=== PATIENT | male | born 1995 | race African-American/Black ===

== ENCOUNTER 2016-08-01 18:56 | Emergency (ER) | payer OTHER ==
[~2016-08-01] VITALS: Ht 177.8 cm; Wt 88.0 kg
[2016-08-01 19:07] VITALS: BP 117/75
[2016-08-01] MEDS ORDERED: PRED20TA PO (19:14)
[2016-08-01] MEDS ORDERED: AMOX875T PO (19:14)
[2016-08-01] MEDS ORDERED: VENTOLIN HFA18 GM INH (19:14)
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
== END 2016-08-01 19:25 | disposition home or self-care (01) ==
LOC: ER 18:56
DX: J20.9 Acute bronchitis, unspecified (principal); F12.10 Cannabis abuse, uncomplicated
CPT/HCPCS: 99283

== ENCOUNTER 2017-02-12 21:50 | Emergency (ER) | payer SELFPAY ==
[~2017-02-12] VITALS: Ht 177.8 cm; Wt 86.6 kg
[~2017-02-12 21:50] MED LIST: AMOX875T PO; PRED20TA PO; VENTOLIN HFA18 GM INH
[2017-02-12 22:31] LABS: BASO # 0.1 x10^3/uL (0.0-0.2); BASO % 1 % (0-3); EOS % 1 % (0-3); HEMATOCRIT 50.1 % (39.0-53.0); HEMOGLOBIN 16.9 g/dL (13.0-17.5); LYMPH # 4.1 x10^3/uL (1.0-4.8); LYMPH % 33 % (24-48); MEAN CORPUSCULAR HEMOGLOBIN 33 pg (25-35); MEAN CORPUSCULAR HGB CONC 34 g/dL (31-37); MEAN CORPUSCULAR VOLUME 97 fL (79-100); MONO % 8 % (0-9); NEUT % 57 % (31-73); PLATELET COUNT 290 x10^3/uL (140-400); RED BLOOD COUNT 5.15 x10^6/uL (4.30-5.70); WHITE BLOOD COUNT 12.6 x10^3/uL (4.0-11.0)
[2017-02-12 22:40] LABS: BILIRUBIN,URINE NEGATIVE (NEG); GLUCOSE,URINE NEGATIVE (NEG); NITRITE,URINE NEGATIVE (NEG); PH,URINE 6.5; PROTEIN,URINE NEGATIVE (NEG-TRACE); UROBILINOGEN,URINE 0.2 mg/dL (0.2 mg/dL)
[2017-02-12 22:43] LABS: CALCIUM 9.5 mg/dL (8.5-10.1); CREATININE 1.2 mg/dL (0.7-1.3); GFR 92.5; POTASSIUM 3.4 mmol/L (3.5-5.1)
[2017-02-12 22:46] LABS: BARBITURATES NEG (NEG); BENZODIAZEPINES POS (NEG); CANNABINOIDS POS (NEG); COCAINE NEG (NEG); METHADONE NEG (NEG); OPIATES NEG (NEG); PHENCYCLIDINE NEG (NEG)
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
[2017-02-12 22:47] LABS: BACTERIA,URINE FEW /HPF (0-FEW); RBC,URINE OCC /HPF (0-2); SQUAMOUS EPITHELIAL CELL,UR OCC /LPF; WBC,URINE OCC /HPF (0-4)
[2017-02-12 22:50] LABS: ALBUMIN 4.4 g/dL (3.4-5.0); ALBUMIN/GLOBULIN RATIO 1.2 (1.0-1.7); MAGNESIUM 2.2 mg/dL (1.8-2.4); TOTAL BILIRUBIN 0.8 mg/dL (0.2-1.0)
[2017-02-12] MEDS ORDERED: levETIRAcetam 500 MG TABLET PO ONE (23:00)
[2017-02-12 23:10] VITALS: BP 133/71
[2017-02-12] MEDS ORDERED: LEVE500T56 PO (23:10)
== END 2017-02-12 23:20 | disposition home or self-care (01) ==
LOC: ER 21:50
DX: R56.9 Unspecified convulsions (principal); G62.9 Polyneuropathy, unspecified; F12.10 Cannabis abuse, uncomplicated
CPT/HCPCS: 36415; 80053; 80307; 81001; 83735; 84146; 85025; 99284; G0479

== ENCOUNTER 2017-03-23 22:00 | Emergency (ER) | payer SELFPAY ==
[2017-03-23] MEDS: levETIRAcetam 500 MG TABLET PO (22:38)
== END 2017-03-23 22:46 | disposition home or self-care (01) ==
LOC: ER 22:00
DX: R56.9 Unspecified convulsions (principal); F12.10 Cannabis abuse, uncomplicated; F17.210 Nicotine dependence, cigarettes, uncomplicated; Z91.14 Patient's other noncompliance with medication regimen; Z79.899 Other long term (current) drug therapy
CPT/HCPCS: 99283

== ENCOUNTER 2017-11-03 11:53 | Emergency (ER) | payer BC ==
[~2017-11-03] VITALS: Ht 175.3 cm; Wt 98.4 kg
[~2017-11-03 11:53] MED LIST changes: +LEVE500T56 PO
[2017-11-03 12:18] LABS: BILIRUBIN,URINE NEGATIVE (NEG); CLARITY,URINE CLEAR; COLOR,URINE YELLOW; NITRITE,URINE NEGATIVE (NEG); PH,URINE 6.5; PROTEIN,URINE 30 mg/dL (NEG-TRACE); UROBILINOGEN,URINE 0.2 mg/dL (0.2 mg/dL)
[2017-11-03 12:24] LABS: BARBITURATES NEG (NEG); BENZODIAZEPINES POS (NEG); CANNABINOIDS POS (NEG); COCAINE NEG (NEG); METHADONE NEG (NEG); OPIATES NEG (NEG); PHENCYCLIDINE NEG (NEG)
[2017-11-03 12:25] LABS: AMPHETAMINE/METHAMPHETAMINE POS (NEG)
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
[2017-11-03 12:29] LABS: BASO % 0 % (0-3); EOS # 0.1 x10^3/uL (0.0-0.7); EOS % 1 % (0-3); HEMATOCRIT 47.3 % (39.0-53.0); HEMOGLOBIN 16.3 g/dL (13.0-17.5); LYMPH # 1.7 x10^3/uL (1.0-4.8); LYMPH % 15 % (24-48); MEAN CORPUSCULAR HEMOGLOBIN 33 pg (25-35); MEAN CORPUSCULAR HGB CONC 35 g/dL (31-37); MEAN CORPUSCULAR VOLUME 97 fL (79-100); MONO # 0.6 x10^3/uL (0.0-1.1); MONO % 6 % (0-9); NEUT # 8.9 x10^3uL (1.8-7.7); NEUT % 79 % (31-73); PLATELET COUNT 279 x10^3/uL (140-400); RED BLOOD COUNT 4.89 x10^6/uL (4.30-5.70); RED CELL DISTRIBUTION WIDTH 13.7 % (11.5-14.5); WHITE BLOOD COUNT 11.3 x10^3/uL (4.0-11.0)
[2017-11-03] MEDS ORDERED: LIDOCAINE WITH 8.4% SOD BICARB 3 ML DISP.SYRIN. INJ ONE (12:30)
[2017-11-03 12:34] LABS: BACTERIA,URINE 0 /HPF (0-FEW); HYALINE CASTS, URINE MANY /HPF; SQUAMOUS EPITHELIAL CELL,UR FEW /LPF
[2017-11-03 12:43] LABS: CALCIUM 10.2 mg/dL (8.5-10.1); CREATININE 1.3 mg/dL (0.7-1.3); GFR 83.5; POTASSIUM 4.6 mmol/L (3.5-5.1)
[2017-11-03 12:49] LABS: ALBUMIN 4.5 g/dL (3.4-5.0); ALBUMIN/GLOBULIN RATIO 1.4 (1.0-1.7); TOTAL PROTEIN 7.8 g/dL (6.4-8.2)
--- NOTE | 2017-11-03 13:08 | RAD ---
CT head without contrast: Reason for examination: Seizure today. Comparison is made to previous study dated 03/20/2016. Axial images were obtained through the brain. No contrast was administered. Exposure: One or more of the following individualized dose reduction techniques were utilized for this examination: 1. Automated exposure control 2. Adjustment of the mA and/or kV according to patient size 3. Use of iterative reconstruction technique. The ventricular systems are symmetric and not dilated. No midline shift is seen. There is no evidence of intracranial hemorrhage, infarct, mass or edema. There do appear to be basal ganglia calcifications bilaterally which are unchanged. No abnormalities are seen at the orbits. The paranasal sinuses and mastoid air cells are clear. No acute abnormality seen in the skull. IMPRESSION: No acute intracranial abnormality evident. Electronically signed by: Rosa Jiménez MD (11/03/2017 1:04 PM) [facility]
[2017-11-03 13:30] VITALS: BP 128/80
[2017-11-03] MEDS ORDERED: fentaNYL PF VIAL 100 MCG/2 ML VIAL IV ONE (13:30)
[2017-11-03] MEDS ORDERED: levETIRAcetam 1,000 MG in IV DEXTROSE 5% 100ML 100 ML IV ONE (13:30)
[2017-11-03] MEDS ORDERED: HYDROcodone/APAP 5/325MG 1 TAB TABLET PO ONE (13:30)
[2017-11-03] MEDS ORDERED: IBUPROFEN 800 MG TABLET. PO ONE (13:30)
== END 2017-11-03 14:02 | disposition home or self-care (01) ==
LOC: ER 11:53
DX: S01.112A Laceration without foreign body of left eyelid and periocular area, initial encounter (principal); R56.9 Unspecified convulsions; W19.XXXA Unspecified fall, initial encounter; Y93.89 Activity, other specified; Y92.89 Other specified places as the place of occurrence of the external cause; Y99.8 Other external cause status
CPT/HCPCS: 12011; 36415; 70450; 80053; 80307; 81001; 85025; 96365; 99285; J1953; G0479

== ENCOUNTER 2018-04-27 22:37 | Emergency (ER) | payer BC ==
[~2018-04-27] VITALS: Ht 177.8 cm; Wt 88.5 kg
[2018-04-27 23:01] VITALS: BP 126/74
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
[2018-04-27] MEDS ORDERED: BENZ100C PO (23:34)
[2018-04-27] MEDS ORDERED: ALBU2.5V8 INH (23:34)
[2018-04-27] MEDS ORDERED: DICY20TA3 PO (23:34)
== END 2018-04-27 23:58 | disposition home or self-care (01) ==
LOC: ER 22:37
DX: R05 Cough (principal); R11.2 Nausea with vomiting, unspecified; R19.7 Diarrhea, unspecified; R51 Headache; R10.84 Generalized abdominal pain; F17.200 Nicotine dependence, unspecified, uncomplicated
CPT/HCPCS: 99283